=== PATIENT | female | born 1990 | race Caucasian/White ===

== ENCOUNTER 2020-04-12 17:31 | Emergency (ER) | payer OTHER ==
--- NOTE | 2020-04-12 17:46 | PDOC ---
Rapid Medical Evaluation Time Seen by Provider: 04/12/20 17:35 Medical Evaluation: Allergies Allergy/AdvReac Type Severity Reaction Status Date / Time No Known Allergies Allergy Verified 04/12/20 17:35 04/12/20 17:35 Pt presents for evaluation of her IUD. Pt reports two months of pelvic pain, states she recently moved and has not set up [employer] care Exam: defer to provider Orders: KUB Pt to proceed to the ER for further evaluation Discharge Disposition - Diagnosis Pelvic pain - Referrals - Patient Instructions - Post Discharge Activity
[2020-04-12 17:49] VITALS: BP 119/66; PULSE 78; TEMP 99.3; BMI 26.5
--- NOTE | 2020-04-12 18:45 | PDOC ---
History of Present Illness - General Chief Complaint: Pain, Acute Stated Complaint: PELVIC PAIN Time Seen by Provider: 04/12/20 17:35 History Source: Patient Exam Limitations: Clinical Condition - History of Present Illness Initial Comments: 04/12/20 18:40 Patient with no significant past medical history using ParaGard IUD present with complaint of intermittent cramping lower abdominal pain which is worsened with menstrual periods and requesting IUD removal. Patient reported has been having the ParaGard IUD for 2 years now but for the past 4 months has been having pain with activity. Reported last menstrual period 10 days ago which finished 2 days ago. Patient reported has been having prolonged periods with a ParaGard IUD. Patient has not seen a DIRECTOR OF VOCATIONAL GUIDANCE for over 6 months now. Patient is looking to get . Denies nausea, vomiting, vaginal bleeding, discharge, fever, chills, abdominal pain. Patient sexually active with one partner. Denies any other symptoms Is this a multiple visit Asthma Patient?: No Timing/Duration: momentarily Past History - Medical History Allergies/Adverse Reactions: Allergies Allergy/AdvReac Type Severity Reaction Status Date / Time No Known Allergies Allergy Verified 04/14/20 16:59 COPD: No - Reproductive History Is Patient Now?: No - Immunization History Immunization Up to Date: Yes - Psycho-Social/Smoking History Smoking History: Never smoked Information on smoking cessation initiated: No - Substance Abuse Hx (Audit-C & DAST Scrn) How often the patient has a drink containing alcohol: Never Score: In Men: 4 or > Positive; In Women: 3 or > Positive: 0 Screen Result (Pos requires Nsg. Audit-10AR): Negative In the last yr the pt used illegal drug/Rx for NonMed reason: Yes Score: Yes response is considered Positive: 1 Screen Result (Positive result requires Nsg. DAST-10): Positive Review of Systems - Review of Systems Able to Perform ROS?: Yes Is the patient limited Albanian proficient: No Constitutional: No: Chills, Fever, Malaise HEENTM: No: Symptoms Reported, See HPI, Eye Pain, Blurred Vision, Tearing, Recent change in vision, Double Vision, Cataracts, Ear Pain, Ocular Prothesis, Ear Discharge, Nose Pain, Nose Congestion, Tinnitus, Nose Bleeding, Hearing Loss, Throat Pain, Throat Swelling, Mouth Pain, Dental Problems, Difficulty Swallowing, Mouth Swelling, Other Respiratory: No: Symptoms reported, See HPI, Cough, Orthopnea, Shortness of Breath, SOB with Exertion, SOB at Rest, Stridor, Wheezing, Productive cough, Hemoptysis, Other Cardiac (ROS): No: Symptoms Reported, See HPI, Chest Pain, Edema, Irregular Heart Rate, Lightheadedness, Palpitations, Syncope, Chest Tightness, Other ABD/GI: No: Symptoms Reported, See HPI, Constipated, Diarrhea, Nausea, Vomiting, Abdominal cramping : Yes: Symptoms Reported, See HPI, Pain (intermittent pelvic pain). No: Burning, Dysuria, Discharge, Frequency, Flank Pain, Hematuria, Urgency Musculoskeletal: No: Symptoms Reported, Back Pain All Other Systems: Reviewed and Negative *Physical Exam - Vital Signs Last Vital Signs Temp Pulse Resp BP Pulse Ox 99.3 F 78 18 119/66 100 04/12/20 17:35 04/12/20 17:35 04/12/20 17:35 04/12/20 17:35 04/12/20 17:35 - Physical Exam General Appearance: Yes: Nourished, Appropriately Dressed. No: Apparent Distress HEENT: positive: Normal ENT Inspection Respiratory/Chest: positive: Lungs Clear, Normal Breath Sounds. negative: Chest Tender, Respiratory Distress, Accessory Muscle Use Cardiovascular: positive: Regular Rhythm, Regular Rate Female Pelvic Exam: positive: normal external exam, cervical os closed, normal adnexa, other (visible paragard IUD strings in cervical os). negative: CMT, discharge, vaginal bleeding Gastrointestinal/Abdominal: positive: Normal Bowel Sounds, Flat. negative: Tender, Organomegaly Musculoskeletal: positive: Normal Inspection. negative: CVA Tenderness Extremity: positive: Normal Capillary Refill, Normal Inspection, Normal Range of Motion Integumentary: positive: Normal Color Neurologic: positive: Fully Oriented, Alert, Normal Mood/Affect, Normal Response, Motor Strength 5/5 Medical Decision Making - Medical Decision Making 04/12/20 18:41 Patient with no significant past medical history using ParaGard IUD present with complaint of intermittent cramping lower abdominal pain which is worsened with menstrual periods and requesting IUD removal. Patient reported has been having the ParaGard IUD for 2 years now but for the past 4 months has been having pain with activity. Reported last menstrual period 10 days ago which finished 2 days ago. Patient reported has been having prolonged periods with a ParaGard IUD. Patient has not seen a DIRECTOR OF VOCATIONAL GUIDANCE for over 6 months now. Patient is looking to get . Denies nausea, vomiting, vaginal bleeding, discharge, fever, chills, abdominal pain. Patient sexually active with one partner. Denies any other symptoms Clinical exam unremarkable with no abdominal tenderness. No pelvic tenderness on exam. ParaGard IUD strings visible on vaginal exam. No blood in vaginal vault. No cervical motion tenderness. Patient in no acute distress. ParaGard IUD removed with ring forceps as per patient request. UA, urine test and urine culture lab ordered. Urine gonorrhea and chlamydia tests ordered. Treat based on UA and urine results 04/12/20 20:34 UA unremarkable and urine test negative. Patient stable for discharge with DIRECTOR OF VOCATIONAL GUIDANCE follow-up Discharge - Discharge Information Problems reviewed: Yes Clinical Impression/Diagnosis: Pelvic pain, IUD (intrauterine device) in place Condition: Stable Disposition: HOME - Admission No - Follow up/Referral Referrals: Chao Carrillo MD [Staff Physician] - - Patient Discharge Instructions Patient Printed Discharge Instructions: DI for Pelvic Pain Additional Instructions: Your IUD was removed today. Your urine lab was normal. Follow-up with your DIRECTOR OF VOCATIONAL GUIDANCE as discussed - Post Discharge Activity
[2020-04-12 19:14] LABS: EPI CELLS 21 /uL (0-25.1); HCG,QUALITATIVE URINE Negative; HYALINE CASTS 2 /uL (0-3.1); PH,URINE 5.5 (5.0-8.0); URINE APPEARANCE CLEAR; URINE BACTERIA 150 /uL (0-1359); URINE BILIRUBIN NEGATIVE (NEGATIVE); URINE COLOR YELLOW; URINE GLUCOSE (UA) NEGATIVE (NEGATIVE); URINE KETONE NEGATIVE (NEGATIVE); URINE LEUK ESTERASE 1+ (NEGATIVE); URINE NITRITE NEGATIVE (NEGATIVE); URINE PROTEIN NEGATIVE (NEGATIVE); URINE RBC 3 /uL (0-23.9); URINE WBC 48 /uL (0-25.8)
== END 2020-04-12 19:29 | disposition home or self-care (01) ==
LOC: JERFT 17:31
DX: R10.2 Pelvic and perineal pain (principal)
CPT/HCPCS: 36415; 81003; 84703; 87086; 87491; 87591; 99283-25